=== PATIENT | male | born 1950 | race African-American/Black ===

== ENCOUNTER → 2017-10-29 | Outpatient (CLI) | payer MEDICARE, OTHER ==
[2017-10-29 13:49] LABS: ABSOLUTE EOSINOPHILS # (AUTO) 0.1 10^3/uL (0.0-0.6); ABSOLUTE MONOCYTES (AUTO) 0.4 10^3/uL (0.1-1.4); ABSOLUTE NEUT (AUTO) 3.4 10^3/uL (1.7-8.2); BASOPHILS % (AUTO) 0.2 % (0-2); EOSINOPHILS % (AUTO) 1.8 % (0-6); HEMATOCRIT 41.4 % (37.9-51.0); HEMOGLOBIN 14.2 g/dL (13.5-17.0); HGB HCT DIFFERENCE 1.2; LYMPHOCYTES % (AUTO) 33.6 % (13-45); MEAN CORPUSCULAR HEMOGLOBIN 28.4 pg (27.0-33.4); MEAN CORPUSCULAR HGB CONC 34.4 g/dL (32.0-36.0); MEAN CORPUSCULAR VOLUME 83 fl (80-97); MONOCYTES % (AUTO) 7.3 % (3-13); RED BLOOD COUNT 5.02 10^6/uL (4.35-5.55); RED CELL DISTRIBUTION WIDTH 14.9 % (11.5-14.0); SEGMENTED NEUTROPHILS % (AUTO) 57.1 % (42-78); WHITE BLOOD COUNT 5.9 10^3/uL (4.0-10.5)
[2017-10-29 14:10] LABS: ANION GAP 12 (5-19); BLOOD UREA NITROGEN 15 mg/dL (7-20); CALCIUM 10.7 mg/dL (8.4-10.2); CARBON DIOXIDE 30 mmol/L (22-30); CHLORIDE 100 mmol/L (98-107); CREATININE RESULT 1.01 mg/dL (0.52-1.25); GLUCOSE 64 mg/dL (75-110); POTASSIUM 4.4 mmol/L (3.6-5.0); SODIUM 142.3 mmol/L (137-145)
--- NOTE | 2017-10-29 15:07 | EKG REPORT ---
SEVERITY:- ABNORMAL ECG - SINUS RHYTHM SUPRAVENTRICULAR BIGEMINY INCOMPLETE RIGHT BUNDLE BRANCH BLOCK : Confirmed by: Moise Xavier MD 29-Oct-2017 15:07:04
== END ==
LOC: OD 12:47
PROVIDERS: ATTEND Orthopaedic Surgery
DX: Z01.818 Encounter for other preprocedural examination (principal)
CPT/HCPCS: 36415; 80048; 85025; 93005; 93010

== ENCOUNTER 2020-09-20 15:48 | Emergency (ER) | payer OTHER, MEDICARE ==
[2020-09-20 16:01] VITALS: BP 144/78
--- NOTE | 2020-09-20 16:04 | ER Document Report ---
HPI - HPI Time Seen by Provider: 09/20/20 16:01 Notes: Patient presents with right knee pain, redness and swelling x3 days. Denies any trauma. Denies hx of same. Vertical Provider Document - INFECTION CONTROL TRAVEL OUTSIDE OF THE [place] IN LAST 30 DAYS: No Course - Vital Signs Vital signs: Temp Pulse Resp BP Pulse Ox 89 16 144/78 H 100 09/20/20 16:00 09/20/20 16:00 09/20/20 16:00 09/20/20 16:00 Discharge - Discharge Referrals: COREY ARREGUIN MD [Primary Care Provider] - Follow up as needed
--- NOTE | 2020-09-20 16:33 | RADIOLOGY REPORT (SQ) ---
EXAM DESCRIPTION: CT RT LOWER EXTREMITY WITHOUT IMAGES COMPLETED DATE/TIME: 09/20/2020 4:17 pm REASON FOR STUDY: knee pain/redness/swelling COMPARISON: None. TECHNIQUE: Axial imaging performed through the Right knee with reformatted coronal and sagittal imaging windowed for bone and soft tissues. Images saved to PAC S. 3D IMAGING: Were 3D images as MIP, SSD, or volume rendering performed at the work station? No LIMITATIONS: None. FINDINGS: SOFT TISSUES: Subcutaneous inflammatory changes anterior knee. No fluid collection or for eign body. No joint effusion. Dense vascular calcifications. BONY STRUCTURES: No acute fracture. No evidence of osteomyelitis. MINERALIZATION: Normal. OTHER: No other significant finding. IMPRESSION: Prepatellar inflammatory changes. Reading location - IP/workstation name: [email or web address]
[2020-09-20 16:34] LABS: ABSOLUTE BASOPHILS # (AUTO) 0.1 10^3/uL (0.0-0.2); ABSOLUTE EOSINOPHILS # (AUTO) 0.1 10^3/uL (0.0-0.6); ABSOLUTE LYMPHOCYTES (AUTO) 1.8 10^3/uL (0.5-4.7); ABSOLUTE MONOCYTES (AUTO) 0.7 10^3/uL (0.1-1.4); ABSOLUTE NEUT (AUTO) 5.5 10^3/uL (1.7-8.2); BASOPHILS % (AUTO) 1.1 % (0-2); EOSINOPHILS % (AUTO) 1.7 % (0-6); HEMOGLOBIN 14.5 g/dL (13.5-17.0); LYMPHOCYTES % (AUTO) 21.3 % (13-45); MEAN CORPUSCULAR HEMOGLOBIN 27.9 pg (27.0-33.4); MEAN CORPUSCULAR HGB CONC 34.6 g/dL (32.0-36.0); MEAN CORPUSCULAR VOLUME 81 fl (80-97); MONOCYTES % (AUTO) 8.6 % (3-13); PLATELET COUNT 225 10^3/uL (150-450); RED BLOOD COUNT 5.21 10^6/uL (4.35-5.55); RED CELL DISTRIBUTION WIDTH 16.7 % (11.5-14.0); SEGMENTED NEUTROPHILS % (AUTO) 67.3 % (42-78); TOTAL CELLS COUNTED % (AUTO) 100 %; WHITE BLOOD COUNT 8.2 10^3/uL (4.0-10.5)
[2020-09-20 17:06] LABS: ALBUMIN 4.5 g/dL (3.5-5.0); ALKALINE PHOSPHATASE 131 U/L (38-126); ANION GAP 9 (5-19); ASPARTATE AMINO TRANSFERASE 35 U/L (17-59); BILIRUBIN,DIRECT 0.2 mg/dL (0.0-0.4); BILIRUBIN,TOTAL 0.7 mg/dL (0.2-1.3); BLOOD UREA NITROGEN 18 mg/dL (7-20); C-REACTIVE PROTEIN 8.8 mg/L (<10.0); CALCIUM 10.7 mg/dL (8.4-10.2); CARBON DIOXIDE 32 mmol/L (22-30); CHLORIDE 97 mmol/L (98-107); GLUCOSE 107 mg/dL (75-110); POTASSIUM 4.5 mmol/L (3.6-5.0); TOTAL PROTEIN 7.6 g/dL (6.3-8.2)
[2020-09-20 17:14] LABS: ERYTHROCYTE SEDIMENTATION RATE 22 mm/hr (0-20)
--- NOTE | 2020-09-20 17:29 | ER Document Report ---
ED Medical Screen (RME) - General Stated Complaint: RIGHT KNEE PAIN Time Seen by Provider: 09/20/20 16:01 Primary Care Provider: COREY ARREGUIN MD [Primary Care Provider] - Follow up as needed Mode of Arrival: Ambulatory Information source: Patient Notes: Patient presents with right knee pain, redness and swelling x3 days. Denies any trauma. Denies hx of same. Patient reports he went to an urgent care where they felt that he may have a more serious complaints so they sent him to the e mergency department. Patient denies any history of gout, denies any recent trauma to the area, denies any injury or break in the skin. Anterior portion of right knee with edema and erythema. Slight warmth to palpation. I have greeted and performed a rapid initial assessment of this patient. A c omprehensive ED assessment and evaluation of the patient, analysis of test results and completion of the medical decision making process will be conducted by additional ED providers. I have specifically instructed the patient or family members with the patient to immediately return to any nursing staff should anything change in the patient's condition or with their chief complaint. TRAVEL OUTSIDE OF THE [place] IN LAST 30 DAYS: No - Related Data Allergies/Adverse Reactions: No Known Allergies Allergy (Unverified 09/20/20 16:02) Physical Exam - Vital signs Vitals: Pulse Resp BP Pulse Ox 89 16 144/78 H 100 09/20/20 16:00 09/20/20 16:00 09/20/20 16:00 09/20/20 16:00 Course - Vital Signs Vital signs: Temp Pulse Resp BP Pulse Ox 89 16 144/78 H 100 09/20/20 16:00 09/20/20 16:00 09/20/20 16:00 09/20/20 16:00 - Laboratory Result Diagrams: 09/20/20 16:23 09/20/20 16:23 Laboratory results interpreted by me: 09/20/20 09/20/20 16:23 16:23 RDW 16.7 H ESR 22 H Chloride 97 L Carbon Dioxide 32 H Creatinine 1.36 H Est GFR (MDRD) Non-Af 52 L Calcium 10.7 H Alkaline Phosphatase 131 H Doctor's Discharge - Discharge Referrals: COREY ARREGUIN MD [Primary Care Provider] - Follow up as needed
--- NOTE | 2020-09-20 19:16 | RADIOLOGY REPORT (SQ) ---
EXAM DESCRIPTION: VENOUS UNILATERAL LOWER IMAGES COMPLETED DATE/TIME: 09/20/2020 7:08 pm REASON FOR STUDY: RLE pain/swelling COMPARISON: None. TECHNIQUE: Dynamic and static meyers scale and color images acquired of the right leg venous system. S elected spectral images acquired with additional compression and augmentation maneuvers. The contrala teral common femoral vein and saphenofemoral junction were also imaged. Images stored on PACS. LIMITATIONS: None. FINDINGS: COMMON FEMORAL: Normal phasicity, compression and augmentation. No visualized echogenic ma terial on meyers scale. No defects on color images. FEMORAL: Normal compression and augmentation. No visualized echogenic material on meyers scale. No defe cts on color images. POPLITEAL: Normal compression, augmentation. No visualized echogenic material on meyers scale. No defec ts on color images. CALF VESSELS: Normal compression, augmentation. No visualized echogenic material on meyers scale. No de fects on color images. GSV and SSV: Normal compression, augmentation. No visualized echogenic material on meyers scale. No def ects on color images. ANY DEEP VENOUS INSUFFICIENCY: Not evaluated. ANY EVIDENCE OF POPLITEAL CYST: No. OTHER: No other significant finding. CONTRALATERAL COMMON FEMORAL VEIN AND SAPHENOFEMORAL JUNCTION: Normal phasicity, compression and augmentation. No visualized echogenic material on meyers scale. No de fects on color images. IMPRESSION: NO EVIDENCE DVT OR SVT IN THE RIGHT LEG. TECHNICAL DOCUMENTATION: JOB ID: [id number] 2010 [employer]- All Rights Reserved Reading location - IP/workstation name: [email or web address]
--- OUTSIDE RECORDS SUMMARY | 2020-09-22 17:45 | XMS REPORT ---
:1950 [facility] [address] [place] [address] Care Team Providers Name Role Phone Krishan KUHN Attending Clinician Unavailable Allergies, Adverse Reactions, Alerts This patient has no known allergies or adverse reactions. Medications Ordered Filled Start Stop Current Ordering Indication Dosage Frequency Signature Comments Components Medication Medication Date Date Medication? Clinician (SIG) Name Name Santaquin 500 Yes Michael Nickerson Santaquin 500 MCG 5-29 MD MCG Urethral 00:00: Urethral Pellet 00 Pellet Insert 1 into tip of penis up to one time daily as needed for sex. Quantity: 4 Refills: 11 Michael Nickerson MD Start : 0Active Cialis 10 Yes Michael Nickerson Cialis 10 MG Oral 8-21 MD MG Oral Tablet 00:00: Tablet 00 TAKE 1 TABLET 1 HOUR BEFORE ACTIVITY NEEDED. Quantity: 6 Refills: 9 Michael Nickerson MD Start : 8Active Omeprazole Yes Omeprazole 20 MG Oral 4-05 20 MG Oral Capsule 00:00: Capsule Delayed 00 Delayed Release Release Quantity: 90 Refills: 0 Start : 13-Feb-2018 Active Nortriptyli 2016-11 Yes Nortriptyl ne HCl - 50 0-25 ine HCl - MG Oral 00:00: 50 MG Oral Capsule 00 Capsule Quantity: 90 Refills: 0 Start : 7Active Lisinopril Yes Lisinopril 40 MG Oral 7-17 40 MG Oral Tablet 00:00: Tablet 00 Quantity: 90 Refills: 0 Start : 7Active Atorvastati Yes Atorvastat n Calcium 7-17 in Calcium 40 MG Oral 00:00: 40 MG Oral Tablet 00 Tablet Quantity: 90 Refills: 0 Start : 7Active metFORMIN Yes metFORMIN HCl - 1000 6-29 HCl - 1000 MG Oral 00:00: MG Oral Tablet 00 Tablet Quantity: 180 Refills: 0 Start : 7Active lisinopril No lisinopril 40 mg 40 mg tablet one tablet one tab by tab by mouth once mouth once daily daily meloxicam No meloxicam 15 mg 15 mg tablet tablet metformin No metformin 1,000 mg 1,000 mg tablet one tablet one tab by tab by mouth once mouth once daily daily nortriptyli No nortriptyl ne 50 mg ine 50 mg capsule capsule Novolog Mix No Novolog 70-30 Mix 70-30 FlexPen FlexPen U-100 U-100 Insulin 100 Insulin unit/mL 100 subcutaneou unit/mL s pen per subcutaneo sliding us pen per scale sliding scale omeprazole No omeprazole 20 mg 20 mg capsule,del capsule,de ayed layed release one release tab by one tab by mouth once mouth once daily daily tamsulosin No tamsulosin 0.4 mg 0.4 mg capsule capsule triamcinolo No triamcinol ne one acetonide acetonide 0.5 % 0.5 % topical topical cream cream Viagra 100 No Viagra 100 mg tablet mg tablet one tab by one tab by mouth once mouth once daily daily Voltaren 1 No Voltaren 1 % topical % topical gel gel NovoLOG Mix Yes NovoLOG 70/30 Mix 70/30 FlexPen FlexPen (70-30) 100 (70-30) UNIT/ML 100 Subcutaneou UNIT/ML s Subcutaneo Suspension us Pen-injecto Suspension r Pen-inject or Refills: 0 Active atorvastati No atorvastat n 40 mg in 40 mg tablet one tablet one tab by tab by mouth once mouth once daily daily Cialis 10 No Cialis 10 mg tablet mg tablet cephalexin No cephalexin 500 mg 500 mg capsule 1 capsule 1 tablet po tablet po BID BID Proscar 5 No 1 Q1D Proscar 5 mg tablet mg tablet Take 1 Take 1 tablet tablet every day every day by oral by oral route. route. tadalafil No 1 Q1D tadalafil 10 mg 10 mg tablet Take tablet 1 tablet Take 1 every day tablet by oral every day route. by oral route. finasteride No finasterid 5 mg tablet e 5 mg one tab by tablet one mouth once tab by daily mouth once daily acetaminoph No acetaminop en 325 mg hen 325 mg tablet tablet ibuprofen No ibuprofen 800 mg 800 mg tablet tablet sulfamethox No sulfametho azole 400 xazole 400 mg-trimetho mg-trimeth prim 80 mg oprim 80 tablet mg tablet Problems Condition Condition Condition Status Onset Resolution Last Treatin g Comments Name Details Category Date Date Treatment Clinician Date Arthropathy Arthropathy Problem Active of lumbar of Lumbar 5-10 facet joint Facet Joint 00:00: 00 Lumbosacral Lumbosacral Problem Active spondylosis Spondylosis 5-10 without without 00:00: myelopathy Myelopathy 00 Degeneratio Degeneratio Problem Active n of lumbar n of Lumbar 5-10 interverteb Interverteb 00:00: ral disc ral Disc 00 Sacroiliac Sacroiliac Problem Active disorder Disorder 5-10 00:00: 00 Low back Low Back Problem Active 2017-11 pain Pain 1-13 00:00: 00 Shoulder Shoulder Problem Active pain Pain 5-11 00:00: 00 Muscle Muscle Problem Active weakness Weakness 3-27 00:00: 00 Full Full Problem Active thickness Thickness 3-22 rotator Rotator 00:00: cuff tear Cuff Tear 00 Diabetes Diabetes Problem Active mellitus Mellitus Hypercholes Hypercholes Problem Active terolemia terolemia Hypertensiv Hypertensiv Problem Active e disorder e Disorder Poor Poor Problem Active erection Erection ED ED Problem Active (erectile (erectile dysfunction dysfunction ) ) BPH (benign BPH (benign Problem Active prostatic prostatic hyperplasia hyperplasia ) ) Procedures Procedure Date / Time Performed Performing Clinician Carmen BOLIVAR, lumbar spine 2018-09-23 00:00:00 Shoulder Arthroscopy with Rotator 2017-11-12 00:00:00 Cuff Repair Shoulder Arthroscopy with Rotator 2017-11-12 00:00:00 Cuff Repair (Surg) Knee Replacement History of Knee surgery History of Shoulder surgery History of Ankle surgery Results This patient has no known results. Assessments Condition Name Status Diagnosis Date Treating Clinici an Low back pain Active 2019-03-24 09:27:12 Arthropathy of lumbar facet joint Active 2019-03-24 10: 02:38 Degeneration of lumbar intervertebral Active 2019-03-24 10:02:43 disc Low back pain Active 2018-12-30 09:36:27 Degeneration of lumbar intervertebral Active 2018-12-30 10:10:19 disc Arthropathy of lumbar facet joint Active 2018-12-30 10: 10:25 Lumbosacral spondylosis without Active 2018-12-30 10:10 :35 myelopathy Low back pain Active 2018-12-23 12:29:47 Low back pain Active 2018-12-23 12:29:47 Low back pain Active 2018-11-18 09:16:19 Arthropathy of lumbar facet joint Active 2018-11-18 09: 34:58 Degeneration of lumbar intervertebral Active 2018-11-18 09:34:58 disc Lumbosacral spondylosis without Active 2018-11-18 09:34 :58 myelopathy Osteoarthritis of hip Active 2018-11-18 09:34:58 Low back pain Active 2018-09-23 08:44:23 Arthropathy of lumbar facet joint Active 2018-09-23 09: 22:56 Degeneration of lumbar intervertebral Active 2018-09-23 09:23:03 disc Lumbosacral spondylosis without Active 2018-09-23 09:23 :08 myelopathy Osteoarthritis of hip Active 2018-09-23 09:23:16 Encounters Start End Encounter Admission Attending Care Care Encounter Date/Time Date/Time Type Type Clinicians Facility Department ID 2020-04-08 2020-04-08 Michael Abdalla [facility] [id number] 11:15:00 11:15:00 t; Michael Nickerson MD 2020-03-15 2020-03-15 Michael Abdalla [facility] [id number] 09:30:00 09:30:00 t; Michael Nickerson MD 2019-07-09 [facility] [id number] 10:30:00 10:30:00 t; Michael Nickerson MD 2019-05-11 2019-05-11 Michael Abdalla [facility] [id number] 14:45:00 14:45:00 t; Michael Nickerson MD 2019-04-15 2019-04-15 Michael Abdalla [facility] [id number] 09:45:00 09:45:00 t; Michael Nickerson MD 2019-03-24 2019-03-24 Casey Urban [id number] 00:00:00 00:00:00 Neo, [facility] Surgical [id number] DO: [address] [facility], [address], [place] [address] , Ph. 2019-01-28 2019-01-28 AppointMichael Hsieh [facility] [id number] 09:30:00 09:30:00 t; Michael Nickerson MD 2019-01-19 2019-01-19 Appointabbie [facility]ET CETW [id number] 08:30:00 08:30:00 t; [facility] [place], [facility] 2019-01-09 2019-01-09 AppointMichael Hsieh CET CET [id number] 14:30:00 14:30:00 t; Michael Nickerson MD 2018-12-30 2018-12-30 Casey Urban [id number] 00:00:00 00:00:00 Neo: Surgical Surgical [id number] [facility], [address], [place] [address] , Ph. 2018-12-23 2018-12-23 Mora Martejohn Marteeret [id number] 00:00:00 00:00:00 Martin, Surgical Surgical [id number] DPT: [address], [facility] [place] [address] , Ph. 2018-12-23 2018-12-23 Morabertha Martejohn Marteeret [id number] 00:00:00 00:00:00 Martin, Surgical Surgical [id number] DPT: [address] [facility], [place] [address] , Ph. 2018-11-27 2018-11-27 AppointMichael Hsieh CET CETW [id number] 13:15:00 13:15:00 t; Michael Nickerson MD 2018-11-18 2018-11-18 Casey Urban [id number] 00:00:00 00:00:00 Neo: Surgical Surgical [id number] [address], [place] [address] , Ph. 2018-09-23 2018-09-23 Casey Urban [id number] 00:00:00 00:00:00 Neo: Surgical Surgical [id number] [address] [facility], [place] [address] , Ph. Family History Family Member Diagnosis Comments Start Date Stop Date Unspecified Unknown family medical history Other Immunizations Ordered Immunization Filled Immunization Date Status Commen ts Refusal Reason Name Name pneumococcal 2017-12-11 Completed conjugate PCV 7 00:00:00 influenza, 2017-12-11 Completed injectable, 00:00:00 quadrivalent Social History Smoking Status Start Date Stop Date Current Some Day Smoker Never Smoker Vital Signs Vital Name Observation Time Observation Value Comments BP Diastolic 2019-03-24 00:00:00 73 mm[Hg] Height 2019-03-24 00:00:00 68 [in_i] BP Systolic 2019-03-24 00:00:00 148 mm[Hg] Body Weight 2018-12-30 00:00:00 165 [lb_av] BP Diastolic 2018-12-30 00:00:00 76 mm[Hg] Height 2018-12-30 00:00:00 68 [in_i] BMI (Body Mass Index) 2018-12-30 00:00:00 25.1 kg/m2 BP Systolic 2018-12-30 00:00:00 158 mm[Hg] BP Diastolic 2018-11-18 00:00:00 72 mm[Hg] Height 2018-11-18 00:00:00 68 [in_i] BMI (Body Mass Index) 2018-11-18 00:00:00 25.1 kg/m2 BP Systolic 2018-11-18 00:00:00 136 mm[Hg] Body Weight 2018-11-18 00:00:00 165 [lb_av] BP Diastolic 2018-09-23 00:00:00 76 mm[Hg] Height 2018-09-23 00:00:00 68 [in_i] BMI (Body Mass Index) 2018-09-23 00:00:00 25.1 kg/m2 BP Systolic 2018-09-23 00:00:00 143 mm[Hg] Body Weight 2018-09-23 00:00:00 165 [lb_av] Hospital Discharge Instructions 1. Low back pain 2. Arthropathy of lumbar facet joint 3. Degeneration of lumbar intervertebral disc Discussion Note: None recorded. Patient educational handouts: No information available.1. Low back pain Discussion Note Progress Note due on 10th visit or 01/22/2019. Plan of Care Certification Period is 12/23/2018-03/23/2019 The necessity of therapy services is demonstrated by the exam findings and functional test outcome. This information along with the therapist's clinical judgment was used to select the Medicare G codes and modifiers. I certify the need for these services furnished under this plan of treatment for up to 90 days and while under my care. (see Physician signature below)Patient educational handouts: No information available.1. Low back pain 2. Arthropathy of lumbar facet joint 3. Degeneration of lumbar intervertebral disc 4. Lumbosacral spondylosis without myelopathy 5. Osteoarthritis of hip hip arthritis: care instructions Discussion Note: None recorded.1. Low back pain XR, lumbar spine 2. Arthropathy of lumbar facet joint 3. Degeneration of lumbar intervertebral disc 4. Lumbosacral spondylosis without myelopathy 5. Osteoarthritis of hip hip arthritis: care instructions Discussion Note: None recorded.
== END 2020-09-20 22:30 | disposition left against medical advice (07) ==
LOC: ER 15:48
DX: M25.561 Pain in right knee (principal); M25.461 Effusion, right knee
CPT/HCPCS: 36415; 80053; 85025; 85652; 86140; 93971; 99281